=== PATIENT | female | born 1945 | race Caucasian/White ===

== ENCOUNTER 2021-09-03 11:59 | Emergency (ER) | payer MEDICARE, OTHER ==
[2021-09-03 12:57] LABS: HEMOGLOBIN 14.9 gm/dl (12.3-15.3); RED BLOOD COUNT 4.99 M/UL (4.00-5.10); WHITE BLOOD COUNT 15.8 K/UL (4.5-11.0)
[2021-09-03 13:44] LABS: BUN/CREATININE RATIO 14 (0-10)
[2021-09-03] MEDS ORDERED: VOLTAREN ARTHRI20 GM TP (16:59)
== END 2021-09-03 17:07 | disposition home or self-care (01) ==
LOC: ER1 11:59
PROVIDERS: Physician Assistant Medical
DX: S70.02XA Contusion of left hip, initial encounter (principal); E11.9 Type 2 diabetes mellitus without complications; I10 Essential (primary) hypertension; W19.XXXA Unspecified fall, initial encounter
CPT/HCPCS: 70450; 71045; 73502; 80053; 81001; 82550; 82553; 84484; 85025; 93005; 99284